=== PATIENT | female | born 1985 ===

== ENCOUNTER 2021-09-01 02:10 | Day surgery (SDC) | payer OTHER | END 2021-09-01 12:00 | disposition home or self-care (01) | LOC: WOUND 02:10 | DX: L59.8 Other specified disorders of the skin and subcutaneous tissue related to radiation (principal); N30.40 Irradiation cystitis without hematuria; F17.200 Nicotine dependence, unspecified, uncomplicated; Z88.5 Allergy status to narcotic agent; Z85.41 Personal history of malignant neoplasm of cervix uteri | CPT/HCPCS: G0463 ==